=== PATIENT | male | born 1940 | race Caucasian/White ===

== ENCOUNTER 2020-02-02 06:05 | Inpatient (IN) | payer MEDICARE, SELFPAY ==
[2020-02-02] VITALS (8 sets, daily range): BP systolic 107–170; BP diastolic 71–97; PULSE 53–76; RESP 16–20; TEMP 35.7–36.4; O2SAT 95–99; BMI 27.2
--- NOTE | ~2020-02-02 | XR_ITS ---
EXAMINATION: XR chest 1V portable EXAM DATE: 02/02/2020 12:34 INDICATION: Abnormal appendix. Preoperative. TECHNIQUE: Portable AP frontal chest x-ray was obtained. There is no prior study for comparison. FINDINGS: Large gastroesophageal hiatal hernia. There is single lead pacemaker/AICD device seen with tip projecting over the expected location of right ventricle. The lungs are clear. There are no pleu ral effusions. Cardiac silhouette is prominent but magnified on this AP technique. There is no pne umothorax suspected. The bones and soft tissues are unremarkable. IMPRESSION: No acute cardiopulmonary findings. Large hiatal hernia. Reviewed, dictated and finalized at location A.
--- NOTE | ~2020-02-02 | CT_ITS ---
EXAMINATION: CT abdomen pelvis w con EXAM DATE: 02/02/2020 08:00 INDICATION: Right lower quadrant pain. TECHNIQUE: Spiral CT of the abdomen and pelvis was performed following intravenous injection of 100 m L Omnipaque 350. Axial, coronal and sagittal images were reviewed. The dose-length product (DLP) fo r this examination was 577.57 mGy-cm. The exposure was tailored according to patient size (auto mA e xposure control), and iterative reconstruction (ASIR) was used as additional dose reduction technique . Comparison is made to prior examination from 02/02/2020. FINDINGS: The liver, spleen, adrenal glands and pancreas are unremarkable. Gallbladder is unremarkab le. No biliary obstruction. Portal and splenic veins are patent. Kidneys enhance symmetrically. T here is no hydronephrosis. Largest renal cyst is in the left kidney measuring 3.4 cm. There is severe prostatomegaly. The bladder is unremarkable. There is no retroperitoneal or pelvic lymphadenopathy . There is moderate scattered arteriosclerotic disease. The appendix is identified at the cecal base, does not appear obstructed, but its tip has thicker farzad earing wall, more soft tissue density, thicker caliber than is expected. Differential diagnosis inclu alejandro acute appendicitis, chronic appendicitis, cancer. Mild adjacent fat stranding. No abscess. See ax ial image 116. There is extensive sigmoid predominant colonic diverticulosis. There is no adjacent inflammatory alena nge to suggest diverticulitis. Small umbilical fat-containing hernia. There is a large gastroesoph ageal hiatal hernia. There is expected amount of colonic stool. No free intraperitoneal gas. Mi ld to moderate basilar emphysema. Cardiac pacemaker/AICD device. Scattered pleural calcifications breanna aterally may indicate prior asbestos exposure. There are no osteoblastic or osteolytic lesions ident ified. IMPRESSION: 1. Abnormal appearing appendix with more soft tissue component at the tip, mild adjacent fat strandi ng. Differential diagnosis includes acute appendicitis, chronic appendicitis, appendical cancer. 2. Intrathoracic stomach. 3. Extensive sigmoid predominant colonic diverticulosis. 4. Severe prostatomegaly. Reviewed, dictated and finalized at location A. IMPRESSION: 1. Abnormal appearing appendix with more soft tissue component at the tip, mil d adjacent fat stranding. Differential diagnosis includes acute appendicitis, c hronic appendicitis, appendical cancer. 2. Intrathoracic stomach. 3. Extensive sigmoid predominant colonic diverticulosis. 4. Severe prostatomegaly.
--- NOTE | 2020-02-02 06:51 | ED.ABDPAIN ---
HPI - Abdominal Pain General Chief Complaint: Abdominal Pain Stated Complaint: Right abd pain Time Seen by Provider: 02/02/20 06:38 Source: patient and family Mode of arrival: ambulatory Limitations: no limitations History of Present Illness HPI narrative: This patient is a 79 year old male with history of atrial fibrillation on eliquis and digoxin who presents for evaluation of right lower abdominal pain. This pain started on Monday and it has continued to worsen. He states he feels pain when ever he moves. He has minimal pain when he is still. He denies nausea, vomiting , fever or chills. He also denies any urinary symptoms. He took his last dose of pain medication at 2 pm yesterday. Related Data Home Medications Medication Instructions Recorded Confirmed apixaban 5 mg tablet 5 mg PO DAILY 01/30/20 02/02/20 atorvastatin 20 mg tablet 20 mg PO DAILY 01/30/20 02/02/20 carvedilol 25 mg tablet 25 mg PO Q12H 01/30/20 02/02/20 cyanocobalamin (vitamin B-12) 1,000 mcg PO DAILY 01/30/20 02/02/20 1,000 mcg capsule digoxin 125 mcg (0.125 mg) tablet 125 mcg PO DAILY 01/30/20 02/02/20 finasteride 5 mg tablet 5 mg PO DAILY 01/30/20 02/02/20 furosemide 20 mg tablet 20 mg PO QAM 01/30/20 02/02/20 lisinopril 2.5 mg tablet 2.5 mg PO DAILY 01/30/20 02/02/20 oxycodone-acetaminophen 5 mg-325 1 tablet PO Q6H PRN 01/30/20 02/02/20 mg tablet amiodarone 200 mg PO BID 02/02/20 02/02/20 zinc 50 mg PO DAILY 02/02/20 02/02/20 Allergies Allergy/AdvReac Type Severity Reaction Status Date / Time No Known Allergies Allergy Verified 02/02/20 14:10 Review of Systems Review of Systems: All systems reviewed & are unremarkable except as noted in HPI and below Constitutional: Constitutional: Denies chills and Denies fever(s) Respiratory: Respiratory: Denies cough and Denies dyspnea Gastrointestinal: Gastrointestinal: Reports abdominal pain, Denies nausea and Denies vomiting Genitourinary: Genitourinary: Denies hematuria, Denies dysuria and Denies urinary frequency [facility] Past Medical History Medical History Atrial fibrillation Diverticulosis Large hiatal hernia Osteoarthritis of both knees Stroke Hx of CVA (Approximately 2018 according to patient). Surgical History Surgical History History of permanent cardiac pacemaker placement AICD (Patient stated shocked x1 by AICD in past) Status post implantation of automatic cardioverter/defibrillator (AICD) Family History Family History Other Appendicitis Heart disease Social History Social History Smoking packs per day: 1 Smoking cigarettes per day: 20.0 Years smoked: 34 Smoking pack-years: 34.00 Smoking status: Former smoker Tobacco type: cigarettes, pipe and cigars Alcohol intake: current Drinks per week: 4 Substance use: never Gender identity (if verbalized by the patient): Male Sexual Orientation (if Verbalized by the Patient): Straight or Heterosexual Spiritual care concerns: No Exam Const: General: no acute distress and alert Orientation/consciousness: patient oriented x3 HENMT: Head: normocephalic and atraumatic Face and sinus: face symmetric Eyes: EOM: EOMs intact bilaterally Chest: Chest palpation & inspection: normal inspection of the chest Resp: Effort & Inspection: normal respiratory effort, no retractions and no use of accessory muscles Auscultation: clear to auscultation bilaterally Cardio: Rate: regular rate Rhythm: regular rhythm Heart sounds: no murmurs GI: GI Palp: Yes Soft to palpation, Yes Tenderness to palpation present (GI) (right lateral lower abdomen), Yes Guarding due to palpation present (GI) (voluntary), No Rigid due to palpation and Yes Rebound tenderness present Back/Spine/Pelvis: Back
[2020-02-02 07:08] LABS: Basophils Percent Auto 0.3 % (0.2-1.2); Eosinophils Percent Auto 0.3 % (0-4.4); Hematocrit 39.7 % (42.0-52.0); Hemoglobin 13.3 g/dL (14.0-18.0); Immature Granulocyte Absolute 0.03 K/mm3 (0.00-0.031); Immature Granulocyte Percent A 0.3 % (0-0.5); Lymphocytes Absolute Auto 1.44 K/mm3 (0.9-3.2); Lymphocytes Percent Auto 16.2 % (18.3-44.2); Mean Corpuscular HGB Conc 33.5 g/dl (32-36); Mean Corpuscular Hemoglobin 33.5 pg (26-34); Mean Platelet Volume 10.2 fl (7.4-10.4); Monocytes Absolute Auto 0.9 K/mm3 (0.1-0.6); Monocytes Percent Auto 10.2 % (2.6-8.5); Neutrophils Absolute Auto 6.5 K/mm3 (1.3-6.7); Neutrophils Percent Auto 72.7 % (45.5-73.1); Platelet Count Result 141 k/mm3 (150-375); Red Blood Count 3.97 M/mm3 (4.6-6.20); Red Cell Distribution Width 13.5 % (11.5-14.5); White Blood Count 8.9 K/mm3 (4.5-10.0)
[2020-02-02 07:11] LABS: Add Urine Microscopic? YES; Appearance Urine Clear (Clear); Bilirubin Urine Negative (Negative); Blood Urine Negative (Negative); Color Urine Yellow (Yellow); Glucose Urine UA Negative (Negative); Ketones Urine Negative (Negative); Leukocyte Esterase Ur Negative LEU/UL (Negative); Mucus Urine Rare /lpf; Nitrate Urine Negative (Negative); Protein Urine Negative (Negative); RBC Urine 0-2 /hpf (0-2); Specific Grav Ur 1.021 (1.001-1.035); Squamous Epithelial Cell Urine Rare /hpf (Few); WBC Urine 0-3 /hpf
[2020-02-02 07:16] LABS: INR 1.2
[2020-02-02 07:17] LABS: Partial Thromboplastin Time 31.8 SECONDS (22.3-36.8)
[2020-02-02 07:18] LABS: Alanine Aminotransferase 46 U/L (4-50); Albumin Level 3.4 g/dL (3.5-5.1); Alkaline Phosphatase 74 U/L (38-126); Anion Gap 8 mmol/L (8-16); Aspartate Amino Transferase 33 U/L (17-59); Bilirubin,Total 0.8 mg/dL (0.2-1.3); Blood Urea Nitrogen 21 mg/dL (9-20); Carbon Dioxide 30 mmol/L (22-30); Chloride 101 mmol/L (98-107); Estimated CRCL calculation 46 ml/min; Estimated Glomerular Filt Rate 58; Glucose 97 mg/dL (75-110); Lipase 165 U/L (23-300); Potassium 3.9 mmol/L (3.4-5.0); Sodium 139 mmol/L (137-145)
[2020-02-02 07:41] LABS: Digoxin 1.3 ng/mL (0.8-2.0)
--- NOTE | 2020-02-02 11:29 | PC.NURSE ---
patient aware of pending transfer upstairs. SBAR sent. patient assisted to ambulate to restroom and back to his room. resting on stretcher. does want pain med prior to transfer upstairs. morphine and zofran given. shirts in belonging bag on stretcher with his can. call light in reach. on BP and O2 monitor for now after medication given. blanket on.
--- NOTE | 2020-02-02 11:37 | ECG_ITS ---
Measurements Intervals [place] Rate: 68 P: [place]: 0 QRS: 16 QRSD: 109 T: 120 QT: 403 QTc: 429 Interpretive Statements ATRIAL FIBRILLATION LOW QRS VOLTAGE IN LIMB LEADS CANNOT RULE OUT SEPTAL INFARCT, AGE INDETERMINATE NONSPECIFIC ST & T-WAVE ABNORMALITY- DIFFUSE LEADS BASELINE ARTIFACT- II, III, AVF, V4-V5 ABNORMAL ECG Electronically Signed On 02-02-2020 16:56:45 CDT by Han Obrien D.O.
--- NOTE | 2020-02-02 11:50 | PM.IMHP ---
H&P: HPI History of Present Illness Date/Time: 02/02/20 11:50 Chief complaint: acute appendicitis/anticoagulation Narrative: Herminio Mesa is a 79 year old male who came to the emergency room with right lower quadrant abdominal pain that started Monday evening. The pain was persistent and got slightly worse. He notices the pain is not as bad if he lays very still. He has had no diarrhea and had a bowel movement yesterday. He has had no nausea or vomiting. His has been taking his temperature 3 times a day due to concerns over leone virus. He has not had any fever or chills. The pain was persistent and last night he came to the emergency room. Evaluation there showed him to be afebrile but with exquisite right lower quadrant tenderness with guarding. His white blood cell count was normal at 8900. Urinalysis was unremarkable and he has had no voiding symptoms. He had a CT scan of the abdomen and pelvis in the emergency room. This showed an abnormal appendix with wall thickening and small amount of periappendiceal stranding. The thicker wall was more in the tip and it had a thicker caliber. Differential included acute appendicitis, chronic appendicitis or appendiceal cancer. 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 He has extensive sigmoid diverticulosis as well as severe prostatomegaly. The patient has a significant cardiac history including atrial fibrillation and an AICD device. His Cardiology group is at [facility]. His primary care physician is [place]. He takes Eliquis 5 mg daily. He initially was on 5 mg b.i.d. but was having quite a bit of bleeding whenever he had a scratch or cut. He has cut this back to 5 mg every evening for several months. His last dose was 7:00 p.m. on 02/01/2020. Patient is admitted now for probable acute appendicitis. Review of Systems Review of Systems: All systems reviewed & are unremarkable except as noted in HPI and below Constitutional: Constitutional: Denies headache(s) ENT: Denies headache(s) Cardiovascular: Cardiovascular: Denies chest pain and Denies dyspnea Respiratory: Respiratory: Denies cough and Denies dyspnea Gastrointestinal: Gastrointestinal: Denies bloating, Denies constipation and Denies nausea Neurologic: Denies confusion and Denies headache(s) Psychiatric: Psychiatric: Denies confusion Hematologic/Lymphatic: Hematologic/Lymphatic: Reports easy bleeding and Reports easy bruising [facility] Past Medical History Medical History Atrial fibrillation Osteoarthritis of both knees Surgical History Surgical History History of permanent cardiac pacemaker placement Family History Family History (Updated 02/02/20 @ 11:59 by Jose Norman MD) Other Appendicitis Heart disease Social History Social History Smoking status: Never smoker Meds Home Medications and Allergies Home Medications Medication Instructions Recorded Confirmed Type apixaban 5 mg tablet 5 mg PO DAILY 01/30/20 History atorvastatin 20 mg tablet 20 mg PO DAILY 01/30/20 History carvedilol 25 mg tablet 25 mg PO Q12H 01/30/20 History cyanocobalamin (vitamin B-12) 1,000 mcg PO DAILY 01/30/20 History 1,000 mcg capsule digoxin 125 mcg (0.125 mg) tablet 125 mcg PO DAILY 01/30/20 History finasteride 5 mg tablet 5 mg PO DAILY 01/30/20 History furosemide 20 mg tablet 20 mg PO QAM 01/30/20 History lisinopril 2.5 mg tablet 2.5 mg PO DAILY 01/30/20 History omeprazole 40 mg capsule,delayed 40 mg PO DAILY 01/30/20 History release oxycodone-acetaminophen 5 mg-325 1 tablet PO Q6H PRN 01/30/20 History mg tablet Allergies Allergy/AdvReac Type Severity Reaction Status Date / Time acetaminophen Allergy Mild Itching Verified 02/02/20 06:12 Vital Signs Vital Signs - 24 hr 02/02/20 0
--- NOTE | 2020-02-02 12:05 | ADMGEN ---
This patient, Herminio Mesa, was admitted to Medical Room 257-. Patient/family oriented to hospital policies and general routines including ID bracelet, bed and alarms, visiting hours, pain management, procedures, bathroom and other care routines, personal items, smoking policy, room service/diet, and visiting hours. Valuables list has been completed. Information on how to activate the Rapid Response Team has been discussed. Patient/Family are encouraged to report perceived risks to care and to ask questions if they do not understand what they are told or what they should do.
[2020-02-02] MEDS: KCL 20 MEQ/D5/0.9% SOD CHL 1,000 ML 80 ML IV CONT (14:04)
--- NOTE | 2020-02-02 15:31 | WPDANESEPP ---
Anes - Eval Pre Procedure Procedure: Laparoscopic appendectomy Date/Time: 02/02/20 15:31 Surgeon: Mario Norman M.D. Pre Op Diagnosis: acute appendicitis/anticoagulation Patient Data Age: 79 Gender: M Height: 1.78 m Weight: 86.1 kg Last Vital Signs Temp 36.3 C L 02/02/20 12:50 Pulse 53 L 02/02/20 12:50 Resp 16 02/02/20 12:50 BP 160/80 H 02/02/20 12:50 Pulse Ox 98 02/02/20 12:50 Allergies Allergy/AdvReac Type Severity Reaction Status Date / Time No Known Allergies Allergy Verified 02/02/20 14:10 Home Medications Medication Instructions Recorded Confirmed Type apixaban 5 mg tablet 5 mg PO DAILY 01/30/20 02/02/20 History atorvastatin 20 mg tablet 20 mg PO DAILY 01/30/20 02/02/20 History carvedilol 25 mg tablet 25 mg PO Q12H 01/30/20 02/02/20 History cyanocobalamin (vitamin B-12) 1,000 mcg PO DAILY 01/30/20 02/02/20 History 1,000 mcg capsule digoxin 125 mcg (0.125 mg) tablet 125 mcg PO DAILY 01/30/20 02/02/20 History finasteride 5 mg tablet 5 mg PO DAILY 01/30/20 02/02/20 History furosemide 20 mg tablet 20 mg PO QAM 01/30/20 02/02/20 History lisinopril 2.5 mg tablet 2.5 mg PO DAILY 01/30/20 02/02/20 History oxycodone-acetaminophen 5 mg-325 1 tablet PO Q6H PRN 01/30/20 02/02/20 History mg tablet amiodarone 200 mg PO BID 02/02/20 02/02/20 History zinc 50 mg PO DAILY 02/02/20 02/02/20 History Laboratory Tests 02/02/20 02/02/20 02/02/20 06:59 06:59 06:59 WBC 8.9 K/mm3 K/mm3 (4.5-10.0) RBC 3.97 M/mm3 L M/mm3 (4.6-6.20) Hgb 13.3 g/dL L g/dL (14.0-18.0) Hct 39.7 % L % (42.0-52.0) MCV 100.0 fl fl (80-100) MCH 33.5 pg pg (26-34) MCHC 33.5 g/dl g/dl (32-36) RDW 13.5 % % (11.5-14.5) Plt Count 141 k/mm3 L k/mm3 (150-375) MPV 10.2 fl fl (7.4-10.4) Immature Gran % (Auto) 0.3 % % (0-0.5) Neut % (Auto) 72.7 % % (45.5-73.1) Lymph % (Auto) 16.2 % L % (18.3-44.2) Millard % (Auto) 10.2 % H % (2.6-8.5) Eos % (Auto) 0.3 % % (0-4.4) Baso % (Auto) 0.3 % % (0.2-1.2) Lymph # (Auto) 1.44 K/mm3 K/mm3 (0.9-3.2) Millard # (Auto) 0.9 K/mm3 H K/mm3 (0.1-0.6) Eos # (Auto) 0.0 K/mm3 K/mm3 (0-0.3) Baso # (Auto) 0.0 K/mm3 K/mm3 (0.0-0.1) Abs Immat Gran (auto) 0.03 K/mm3 K/mm3 (0.00-0.031) Absolute Neuts (auto) 6.5 K/mm3 K/mm3 (1.3-6.7) Absolute Nucleated RBC 0.0 K/mm3 K/mm3 (0.0-0.012) Nucleated RBC % 0.0 % % (0.0-0.2) PT 15.0 Seconds H Seconds (11.1-14.7) INR 1.2 APTT 31.8 SECONDS SECONDS (22.3-36.8) Sodium Potassium Chloride Carbon Dioxide Anion Gap BUN Creatinine Estim Creat Clear Calc Estimated GFR Glucose Calcium Total Bilirubin AST ALT Alkaline Phosphatase Total Protein Albumin Lipase Urine Color Yellow (Yellow) Urine Appearance Clear (Clear) Urine pH 7.0 (5.0-9.0) Ur Specific Jameson 1.021 (1.001-1.035) Urine Protein Negative mg/dL mg/dL (Negative) Urine Glucose (UA) Negative mg/dL mg/dL (Negative) Urine Ketones Negative mg/dL mg/dL (Negative) Ur Blood (Man) Negative (Negative) Urine Nitrate Negative (Negative) Urine Bilirubin Negative (Negative) Urine Urobilinogen 2.0 mg/dL H mg/dL (<2.0) Leukocyte Esterase Rfl Negative DEBORA/UL DEBORA/UL (Negative) Urine RBC 0-2 /hpf /hpf (0-2) Urine WBC 0-3 /hpf /hpf Ur Squamous Epith Cells Rare /hpf /hpf (Few) Urine Mucus Rare /lpf /lpf Digoxin Bloo
[2020-02-02] MEDS: AMIODARONE HCL 200 MG TABLET PO (17:57)
[2020-02-02] MEDS: fentaNYL CITRATE INJ (*CRX) 100 MCG/2 ML VIAL 25 MCG IV PUSH ×2 (19:07→22:10)
[2020-02-02] MEDS: carvediloL 25 MG TABLET PO (20:01)
[2020-02-03] MEDS: KCL 20 MEQ/D5/0.9% SOD CHL 1,000 ML 80 ML IV CONT (05:06)
[2020-02-03] MEDS: fentaNYL CITRATE INJ (*CRX) 100 MCG/2 ML VIAL 25 MCG IV PUSH ×2 (05:12→09:06)
[2020-02-03 05:28] LABS: Hematocrit 38.9 % (42.0-52.0); Hemoglobin 12.8 g/dL (14.0-18.0); Mean Corpuscular HGB Conc 32.9 g/dl (32-36); Mean Corpuscular Hemoglobin 33.3 pg (26-34); Mean Corpuscular Volume 101.3 fl (80-100); Mean Platelet Volume 10.7 fl (7.4-10.4); Platelet Count Result 134 k/mm3 (150-375); Red Blood Count 3.84 M/mm3 (4.6-6.20); Red Cell Distribution Width 13.3 % (11.5-14.5); White Blood Count 6.9 K/mm3 (4.5-10.0)
[2020-02-03 06:00] VITALS: BP 151/73; PULSE 50; RESP 20; TEMP 36.3; O2SAT 98
[2020-02-03 06:05] LABS: Anion Gap 5 mmol/L (8-16); Blood Urea Nitrogen 14 mg/dL (9-20); Calcium 8.2 mg/dL (8.4-10.2); Carbon Dioxide 29 mmol/L (22-30); Chloride 104 mmol/L (98-107); Estimated CRCL calculation 50 ml/min; Estimated Glomerular Filt Rate > 60; Glucose 125 mg/dL (75-110); Potassium 4.2 mmol/L (3.4-5.0); Sodium 138 mmol/L (137-145)
--- NOTE | 2020-02-03 07:20 | WPDHPUPDATE1 ---
History and Physical Update Update Date/Time: 02/03/20 07:20 History and Physical has been reviewed, including an updated exam of the patient. There are NO changes in the patient's condition. Risks, benefits, and alternatives have been discussed and questions answered. Patient agrees to proceed with procedure.
--- NOTE | 2020-02-03 07:21 | PM.PNGS ---
Progress Note: A&P Assessment and Plan (1) Appendicitis, acute, with peritonitis: Code(s): K35.33 - Acute appendicitis with perforation and localized peritonitis, with abscess Status: Acute Assessment and Plan: will proceed with laparoscopic appendectomy later today. I discussed again the procedure with him. All questions were answered. He agrees to go ahead. (2) Chronic anticoagulation: Code(s): Z79.01 - snf (current) use of anticoagulants Status: Chronic Assessment and Plan: Last dose of Eliquis was 7:00 a.m. on Monday evening. (3) Atrial fibrillation, chronic: Code(s): I48.20 - Chronic atrial fibrillation, unspecified Status: Chronic Assessment and Plan: Rate controlled. (4) BPH with obstruction/lower urinary tract symptoms: Code(s): N40.1 - Benign prostatic hyperplasia with lower urinary tract symptoms; N13.8 - Other obstructive and reflux uropathy Status: Chronic Assessment and Plan: Continue finasteride. High risk for urinary retention. Subjective Subjective Date/Time Seen: 02/03/20 07:21 Patient reports: still having pain ( Right lower quadrant as before), tolerating liquids well and afebrile Review of Systems Review of Systems: All systems reviewed & are unremarkable except as noted in HPI and below Constitutional: Constitutional: Reports difficulty sleeping, Denies fever(s) and Denies headache(s) Cardiovascular: Cardiovascular: Denies chest pain and Denies dyspnea Respiratory: Respiratory: Denies cough and Denies dyspnea Gastrointestinal: Gastrointestinal: Reports as per HPI, Reports abdominal pain, Denies nausea and Denies vomiting Neurologic: Denies confusion and Denies headache(s) Exam Const: General: cooperative, healthy appearing, no acute distress, alert, awake and uncomfortable; No confusion Nutritional Appearance: average body habitus Orientation/consciousness: patient oriented x3 and No confusion GI: Inspection: normal to inspection and visible herniation ( umbilical small, no change from yesterday) GI Palp: Yes Soft to palpation, Yes Tenderness to palpation present (GI) ( especially right lower quadrant), Yes Guarding due to palpation present (GI), Yes Hernia present ( tender umbilical hernia, reducible) and No Rebound tenderness present Auscultation: Hypoactive bowel sounds present Neuro: General: patient oriented x3, no focal motor deficits and No confusion Extrem: General: no calf tenderness and no edema Psych: Affect: normal affect Insight: Good insight present (Psych) Judgement: Good judgement present (Psych) Objective Data Vital Signs Vital Signs: Vital Signs - 24 hr 02/02/20 08:30 02/02/20 09:23 02/02/20 11:28 Temperature Pulse Rate 60 67 76 Respiratory Rate 18 20 18 Blood Pressure 157/85 H 165/97 H 170/91 H Pulse Oximetry 95 95 98 02/02/20 12:50 02/02/20 17:57 02/02/20 20:01 Temperature 36.3 C L Pulse Rate 53 L 70 76 Respiratory Rate 16 Blood Pressure 160/80 H Pulse Oximetry 98 02/02/20 21:58 02/03/20 06:00 Temperature 36.4 C 36.3 C L Pulse Rate 59 L 50 L Respiratory Rate 18 20 Blood Pressure 107/71 151/73 H Pulse Oximetry 96 98 Intake/Output Intake/Output: Intake & Output 01/31/20 02/01/20 02/02/20 02/03/20 23:59 23:59 23:59 23:59 Intake Total 780 1950 Output Total 350 1250 Balance 430 700 Meds/Results Medications: Active Medications Generic Name Dose Route Start Last Admin Trade Name Freq PRN Reason Stop Dose Admin Amiodarone HCl 200 mg 02/03/20 09:00 Pacerone PO BID [facility] Atorvastatin Calcium 20 mg 02/03/20 09:00 Lipitor PO DAILY [facility] Carvedilol 25 mg 02/02/20 21:00 02/02/20 20:01 Coreg PO 25 mg Q12HR NIECY Administration Digoxin 125 mcg 02/03/20 09:00 Lanoxin Tab PO DAILY [facility] Diphenhydramine HCl 25 mg 02/02/20 11:41 Benadryl Inj IV PUSH Q6H PRN Itching Ashwini
[2020-02-03 08:00] VITALS: BP 117/62; PULSE 64; RESP 18; TEMP 36.4; O2SAT 97
[2020-02-03 09:05] VITALS: PULSE 60; PULSE 64
[2020-02-03] MEDS: CHLORHEXIDINE GLUCONATE 4% SOL 120 ML BTL 1 APPLIC TOPICAL (09:05)
[2020-02-03] MEDS: DIGOXIN TAB 125 MCG TABLET PO (09:05)
[2020-02-03] MEDS: ATORVASTATIN 20 MG TABLET PO (09:05)
[2020-02-03] MEDS: carvediloL 25 MG TABLET PO (09:05)
[2020-02-03] MEDS: FINASTERIDE 5 MG TABLET PO (09:05)
[2020-02-03] MEDS: lisinopriL 2.5 MG TABLET PO (09:05)
[2020-02-03] MEDS: PANTOPRAZOLE 40 MG TABLET PO (09:05)
[2020-02-03] MEDS: AMIODARONE HCL 200 MG TABLET PO (09:05)
[2020-02-03] MEDS: FUROSEMIDE 20 MG TABLET PO (09:05)
[2020-02-03] MEDS: ENOXAPARIN 40 MG/0.4 ML SYRINGE SUB-Q (09:06)
--- NOTE | 2020-02-03 11:28 | PM.CNCAR ---
Assessment and Plan Additional Plan 79-year-old man with history of angiographically modest coronary artery disease with nonischemic cardiomyopathy did identified in 2017. As stated above the records show that he had a very nice improvement in his ejection fraction which has led as of last year normalized. He does have chronic asymptomatic atrial fibrillation. He continues to take amiodarone which is physician prescribed earlier in the year an attempt at medically converting him. Obviously that has not happened. There is currently no cardiovascular issue that requires my attention. Obviously systemic anticoagulation has to be stopped for surgery and that has already been done. Since he is not known to have significant coronary disease and has good left ventricular function his risk for surgery should not be significantly elevated other than the fact that he does have atrial fibrillation. I would be tempted to discontinue the amiodarone since he persists in AFib although I am not going to interfere/ meddal in the plans that have been already set in place by his established toolmaker grade three. Postoperatively he should be placed back on anticoagulation when surgically that is felt to be reasonable. The proper dose of apixaban is 5 mg q.12 hours. Follow-up after discharge will be with his established toolmaker grade three I do not anticipate establishing with this gentleman for long-term follow-up as we have had no previous interaction with him and his cardiovascular management Nigel Winchester MD [facility] History of Present Illness History of Present Illness Consult date/time: 02/03/20 11:28 Consult reason: atrial fibrillation and pre-op evaluation Reason For Visit: acute appendicitis/anticoagulation Narrative: This is a 79-year-old man who I have no previous contact with her involvement with who is being seen today at the request of the surgical service who are about to take him to the OR later today for an appendectomy. Patient developed symptoms of right lower quadrant abdominal pain on Monday he stated home trying to determine what it was he was concerned about his appendix and so he came to the emergency room on Monday and was found to have appendicitis. He does not receive any of his medical care here at [facility] he has physicians that work and [facility] and [facility]. Patient is still having some right lower quadrant abdominal pain and is anticipating appendectomy later today he is asking me what time he is going to have surgery and I indicated to him the nursing staff can give him some idea regarding that. Cardiac-chen he appears to have a history of a nonischemic cardiomyopathy he has a history of persistent atrial fibrillation as well as a implantable pacemaker/ ICD. According to records that I have not been able to look at from his cardiology group that takes care of him he was found to have frequent ventricular ectopic activity with a symptom of a recent stroke. That was in March of 2017. He had an abnormal stress test and so he was brought for cardiac catheterization at [facility]. He was found to have mild nonocclusive coronary artery disease with global left ventricular systolic dysfunction and ejection fraction measured 30-35%. He was started on medical therapy for this and he did improve nicely with records showing his ejection fraction improved to normal there was a echocardiogram as recently as March of 2019 demonstrating is ejection fraction of 65-70%. He does have moderate atrial enlargement. It was noticed in follow-up the patient had gone into atrial fibrillation. I can't tell from reading the chart exactly when that happened. Presumably because of the low ejection fraction that had initially the patient has had a defibrillator implanted according to records on the chart the device is functioning normally. I do not believe he has received any countershocks from the device from what I can tell. His toolmaker grade three sabiha
[2020-02-03 14:00] VITALS: BP 149/82; PULSE 52; RESP 18; TEMP 36.7; O2SAT 98
--- NOTE | 2020-02-03 16:26 | SUR.PREOP ---
1620; PT STATES HE WASN'T ABLE TO EMPTY HIS BLADDER ALL THE WAY USING URINAL. WANTS TO USE RESTROOM. . TAKEN TO RESTROOM PER W/C. PT VOIDED. RETURNED TO ROOM. 1627; PT STATES HE NEEDS TO HAVE A BM. TAKEN TO BATHROOM PER W/C.
--- NOTE | 2020-02-03 16:30 | SUR.PREOP ---
PT STATES FALSE ALARM. RETURNED TO ROOM PER W/C. PT UPDATED THAT SURGERY IS DELAYED ABOUT 60-90 MINUTES.
--- NOTE | 2020-02-03 17:28 | PC.NURSE ---
Pt agitated and refusing care. Demanding to leave ama. Dr ragland to room to talk with patient and his . Afterwords pt decided to leave AMA. iv d/c and pt. walked out.
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
== END 2020-02-03 17:25 | disposition left against medical advice (07) | DRG 372 ==
LOC: ANHED 07:29 → ANH2MED 11:02
PROVIDERS: General Practice; Admitting Provider Surgery; Emergency Provider Emergency Medicine; PCP Internal Medicine; Visit Provider Surgery
PROC: 0DTJ4ZZ Resection of Appendix, Percutaneous Endoscopic Approach (ICD-10-PCS; CPT 44970; principal; 2020-02-03 15:30)
DX: K35.33 Acute appendicitis with perforation, localized peritonitis, and gangrene, with abscess (principal); I48.20 Chronic atrial fibrillation, unspecified; N13.8 Other obstructive and reflux uropathy; N40.1 Benign prostatic hyperplasia with lower urinary tract symptoms; M17.0 Bilateral primary osteoarthritis of knee; R45.1 Restlessness and agitation; R41.82 Altered mental status, unspecified; Z79.01 Long term (current) use of anticoagulants; Z86.73 Personal history of transient ischemic attack (TIA), and cerebral infarction without residual deficits; Z95.810 Presence of automatic (implantable) cardiac defibrillator; Z87.891 Personal history of nicotine dependence; Z79.899 Other long term (current) drug therapy
CPT/HCPCS: 36415; 71045; 74177; 80048; 80053; 80162; 81001; 83690; 85025; 85027; 85610; 85730; 86850; 86900; 86901; 93005; 96365; 99212; 99285; A9270; G0378; G0463; J1650; J2543; J3010; J3480; Q9967